=== PATIENT | female | born 1995 | race Caucasian/White ===

== ENCOUNTER 2023-10-14 08:40 | Observation (INO) | payer MEDICAID ==
[~2023-10-14] VITALS: Ht 165.1 cm; Wt 71.5 kg
[~2023-10-14 08:40] MED LIST: NO HOME MEDS
[2023-10-14 08:52] VITALS: TEMP 98
[2023-10-14 09:49] LABS: BASOPHILS % (AUTO) 0.5 % (0-1); EOSINOPHILS # (AUTO) 0.1 X10'3 (0-0.9); EOSINOPHILS % (AUTO) 0.8 % (0-6); HEMATOCRIT 42.2 % (35.0-45.0); HEMOGLOBIN 14.1 g/dl (12.0-16.0); LYMPHOCYTES # (AUTO) 1.2 X10'3 (1.1-4.8); LYMPHOCYTES % (AUTO) 16.8 % (21-51); MEAN CORPUSCULAR HEMOGLOBIN 28.5 PG (27.0-31.0); MEAN CORPUSCULAR HGB CONC 33.3 g/dL (33.0-36.5); MEAN CORPUSCULAR VOLUME 85.3 FL (78-98); MEAN PLATELET VOLUME 9.4 FL (7.4-10.4); MONOCYTES # (AUTO) 0.3 X10'3 (0-0.9); MONOCYTES % (AUTO) 4.4 % (2-12); NEUTROPHILS # (AUTO) 5.7 X10'3 (1.8-7.7); NEUTROPHILS % (AUTO) 77.5 % (42-75); PLATELET COUNT 202 X10'3 (140-440); RED BLOOD COUNT 4.94 X10'6 (4.20-5.60); RED CELL DISTRIBUTION WIDTH 13.4 % (11.5-14.5); WHITE BLOOD COUNT 7.3 X10'3 (4.5-11.0)
[2023-10-14 10:10] LABS: ALANINE AMINOTRANSFERASE 14 U/L (12-78); ALBUMIN 4.3 G/DL (3.4-5.0); ALBUMIN/GLOBULIN RATIO 1.2 (1.1-1.5); ALKALINE PHOSPHATASE 62 IU/L (46-116); AMYLASE 54 U/L (25-115); ANION GAP 7 (8-16); ASPARTATE AMINO TRANSFERASE 21 U/L (10-37); BILIRUBIN,TOTAL 3.1 MG/DL (0.1-1.0); BLOOD UREA NITROGEN 9 MG/DL (7-18); BUN/CREATININE RATIO 11.8 (10.0-20.0); CALCIUM 9.1 MG/DL (8.5-10.1); CHLORIDE 103 MMOL/L (99-107); CREATININE 0.76 MG/DL (0.40-0.90); GLUCOSE 96 MG/DL (70-104); LIPASE 26 U/L (16-77); POTASSIUM 3.9 MMOL/L (3.5-5.1); SODIUM 137 MMOL/L (135-145); TOTAL PROTEIN 7.9 G/DL (6.4-8.2); eCRCL 97 ML/MIN; eGFR 89 ML/MIN
[2023-10-14 10:56] LABS: BILIRUBIN,URINE NEGATIVE (Neg); CLARITY,URINE CLEAR (Clear); COLOR,URINE YELLOW (Yellow); GLUCOSE, URINE NEGATIVE (Neg); KETONES,URINE NEGATIVE (Neg); LEUKOCYTE ESTERASE ,URINE NEGATIVE (Neg); NITRITES, URINE NEGATIVE (Neg); OCCULT BLOOD,URINE NEGATIVE (Neg); PH,URINE 7.5 (4.8-8.0); PROTEIN,URINE NEGATIVE (Neg); URINE HCG NEGATIVE (NEG); UROBILINOGEN,URINE 0.2 E.U/dL (0.2-1.0)
[2023-10-14 11:04] LABS: UA COLLECTION TYPE CLN CATCH MIDSTREAM
[2023-10-14 12:09] LABS: BILIRUBIN,DIRECT 0.3 MG/DL (0-0.3)
[2023-10-14] MEDS ORDERED: ONDA-103 PO (14:07)
[2023-10-14] MEDS ORDERED: SINCALIDE IV PRN (15:15)
[2023-10-14] MEDS ORDERED: NORMAL SALINE IV PRN (15:15)
[2023-10-14] MEDS ORDERED: magnesium hydroxide 30ml (MOM) UD suspension PO PRN (15:15)
[2023-10-14] MEDS ORDERED: normal saline 1000ml 1,000 ML IV SCH (15:15)
[2023-10-14] MEDS ORDERED: mag hydrox/Alum hydrox/simeth 30ml oral suspension PO PRN (15:15)
[2023-10-14] MEDS ORDERED: acetaminophen 325mg tablet PO PRN (15:15)
[2023-10-14] MEDS ORDERED: ondansetron/PF 4mg/2ml inj IV PRN (15:15)
[2023-10-14] MEDS ORDERED: ketorolac tromethamine 15mg/ml inj. IV PRN (15:25)
[2023-10-14] MEDS: LORazepam 0.5 MG tablet PO PRN (17:02)
[2023-10-14 17:16] VITALS: BP 115/84; PULSE 66; RESP 16; O2SAT 100
[2023-10-15] MEDS ORDERED: enoxaparin 40mg/0.4ml syringe SUBCUT SCH (08:00)
== END 2023-10-14 18:00 | disposition left against medical advice (07) ==
LOC: ER 08:41 → ED HOLD 15:20
PROVIDERS: ADMIT Internal Medicine; ATTEND Internal Medicine
DX: K80.50 Calculus of bile duct without cholangitis or cholecystitis without obstruction (principal); E80.6 Other disorders of bilirubin metabolism; K58.9 Irritable bowel syndrome, unspecified; Z88.0 Allergy status to penicillin; Z88.1 Allergy status to other antibiotic agents; Z79.899 Other long term (current) drug therapy
CPT/HCPCS: 36415; 76700; 80053; 81003; 81025; 82150; 82248; 83690; 85025; 99284; G0378

== ENCOUNTER 2024-02-05 14:53 | Outpatient (CLI) | payer MEDICAID ==
[~2024-02-05 14:53] MED LIST changes: +ONDA-103 PO
== END 2024-02-05 23:59 | disposition home or self-care (01) ==
LOC: MRI 14:53
PROVIDERS: ATTEND Nurse Practitioner Family
DX: M25.832 Other specified joint disorders, left wrist (principal); M25.532 Pain in left wrist
CPT/HCPCS: 73221